=== PATIENT | female | born 1975 | race African-American/Black ===

== ENCOUNTER 2017-07-06 21:27 | Emergency (ER) | payer MEDICAID, OTHER ==
[~2017-07-06] VITALS: Ht 152.4 cm; Wt 55.0 kg
[~2017-07-06 21:27] MED LIST: advil; birth control pills; tylenol
[2017-07-07] MEDS ORDERED: KETOROLAC 60MG/2ML VIAL IM ONE (00:45)
[2017-07-07 00:46] LABS: CLARITY URINE CLOUDY (CLEAR); COLOR URINE YELLOW (YELLOW); GLUCOSE URINE NEGATIVE (NEGATIVE); KETONES URINE NEGATIVE (NEGATIVE); LEUKOCYTE ESTERASE URINE NEGATIVE (NEGATIVE); NITRITE URINE NEGATIVE (NEGATIVE); OCCULT BLOOD URINE NEGATIVE (NEGATIVE); PH URINE 7.5 (4.5-8.0); PROTEIN URINE NEGATIVE (NEGATIVE); SPECIFIC GRAVITY URINE 1.008 (1.005-1.030); UROBILINOGEN URINE 0.2 E.U./dL (0.2-1.0)
[2017-07-07 01:05] LABS: BASOPHILS % 1.2 % (0.0-2.0); EOSINOPHILS % 4.4 % (0.0-5.0); HEMATOCRIT. 36.3 % (36.0-48.0); HEMOGLOBIN. 12.3 g/dL (12.0-16.0); LYMPHOCYTES % 22.2 % (20.0-50.0); MEAN CORPUSCULAR VOLUME 73.6 fL (81.0-99.0); MEAN PLATELET VOLUME 8.2 fl (7.4-10.4); MONOCYTES % 5.9 % (2.0-8.0); NEUTROPHILS % 66.3 % (40.0-76.0); PLATELET 321 x1000/uL (130-400); RED BLOOD CELL COUNT 4.93 mill/uL (4.2-5.4)
[2017-07-07 01:09] LABS: CHLORIDE 107 mEq/L (98-107)
[2017-07-07 01:18] LABS: CARBON DIOXIDE 27 mEq/L (21-32)
[2017-07-07 06:20] VITALS: BP 125/89
== END 2017-07-07 06:25 | disposition home or self-care (01) ==
LOC: ER 23:30
DX: N20.0 Calculus of kidney (principal); D25.9 Leiomyoma of uterus, unspecified; Z88.3 Allergy status to other anti-infective agents
CPT/HCPCS: 36415; 74176; 76705; 80053; 81001; 81025; 83690; 85025; 96372; 99285; J1885; Z7610